=== PATIENT | male | born 1990 | race Two or more races ===

== ENCOUNTER 2018-01-14 18:25 | Emergency (ER) | payer SELFPAY ==
[2018-01-14] MEDS ORDERED: Ketorolac Tromethamine 30 MG/ML VIAL ONE (20:22)
== END 2018-01-14 20:27 | disposition home or self-care (01) ==
LOC: ERS 18:25
DX: K08.89 Other specified disorders of teeth and supporting structures (principal); F17.210 Nicotine dependence, cigarettes, uncomplicated
CPT/HCPCS: 96372; J1885

== ENCOUNTER 2018-10-21 11:44 | Emergency (ER) | payer SELFPAY | END 2018-10-21 13:09 | disposition home or self-care (01) | LOC: ERS 11:44 | DX: K08.89 Other specified disorders of teeth and supporting structures (principal); F17.210 Nicotine dependence, cigarettes, uncomplicated; Z71.6 Tobacco abuse counseling | CPT/HCPCS: 99282 ==

== ENCOUNTER 2019-07-28 18:03 | Emergency (ER) | payer SELFPAY ==
--- NOTE | 2019-07-28 18:37 | CT ---
CT OF THE ABDOMEN AND PELVIS WITHOUT IV CONTRAST INDICATION: Right-sided flank pain COMPARISON: None FINDINGS: This examination is limited for the evaluation of solid organs and vascular structures due to the lac k of intravenous contrast. ABDOMEN: Lung bases: Clear Liver: No focal lesion. Gallbladder: Normal appearing. Pancreas: Normal. Adrenal glands: Normal. Spleen: Normal. Kidneys and ureters: There are numerous tiny punctate nonobstructing stones involving both kidneys. T here is moderate to prominent dilatation of the right renal collecting system with a 4 mm stone seen at the pelvic inlet on image 67 of series 2 within the distal right ureter. Vasculature: There is a retroaortic left renal vein. Lymph nodes:No lymphadenopathy. Free fluid in abdomen:No free fluid is evident. PELVIS: Small and large bowel: There is decompression of portions of the colon and rectum limiting the evalua tion. Appendix:Not definitely seen Bladder: Decompressed Rectal and perirectal soft tissues:Decompressed Reproductive structures: Normal. Free fluid in pelvis: No free fluid is evident. Lymphadenopathy pelvis: No lymphadenopathy is evident. Osseous structures: No acute osseous abnormality. No destructive osteolytic or osteoblastic lesion i s identified. Soft tissues:Normal. IMPRESSION: 1. 4 mm distal right ureteral calculus with mild to moderate right hydronephrosis. 2. Bilateral nephrolithiasis
[2019-07-28] MEDS ORDERED: Ketorolac Tromethamine 30 MG/ML VIAL ONE (18:50)
[2019-07-28 18:53] LABS: #Basophils 0.1 thou/uL (0.0-0.2); #Monocytes 0.5 thou/uL (0.11-0.59); #Neutrophils 13.7 thou/uL (1.40-6.50); %Basophils 0.4 % (0.0-1.0); %Eosinophils 0.3 % (0.0-10.0); %Lymphocytes 6.4 % (21.0-51.0); %Neutrophils 89.9 % (42.0-75.0); Hemoglobin 16.7 g/dL (14.0-18.0); Mean Corpuscular HGB CONC 34.4 g/dL (32.0-36.0); Mean Corpuscular Hemoglobin 31.9 pg (27.0-31.0); Mean Corpuscular Volume 92.7 fL (78.0-98.0); Mean Platelet Volume 7.3 fL (7.4-10.4); Platelet Count 231 thou/uL (130-400); RBC Distribution Width 11.3 % (11.5-14.5); Red Blood Cell (RBC) Count 5.23 mill/uL (4.70-6.10); White Blood Cell (WBC) Count 15.3 thou/uL (4.8-10.8)
[2019-07-28 19:14] LABS: ALT (SGPT) 7 U/L (8-55); AST (SGOT) 10 U/L (5-34); Alkaline Phosphatase 73 U/L (40-110); Anion Gap 12 mmol/L (10-20); BUN (Urea Nitrogen) 10 mg/dL (8.9-20.6); Bilirubin, Total 0.9 mg/dL (0.2-1.2); Calc. Creatinine Clearance 0 mL/min (70-130); Calcium 9.3 mg/dL (7.8-10.44); Carbon Dioxide 27 mmol/L (22-29); Chloride 104 mmol/L (98-107); Estimated GFR-MDRD Greater than 90; Globulin 2.8 g/dL (2.4-3.5); Glucose 105 mg/dL (70-105); Lipase 9 U/L (8-78); Protein, Total 7.8 g/dL (6.0-8.3); Sodium 139 mmol/L (136-145)
[2019-07-28 19:30] LABS: Bilirubin Negative (Negative); Blood, Urine 3+ (Negative); Clarity Turbid (Clear); Glucose, Urine (Dipstick) Normal (Negative); Leukocyte 75 Leu/uL (Negative); Nitrite Negative (Negative); Protein, Urine (Dipstick) 300 mg/dL (Neg-Trace); RBC/HPF Greater than 50 HPF (0-3); Squamous Epithelial 0-3 HPF (0-3); WBC/HPF 21-50 HPF (0-3)
[2019-07-28 19:31] LABS: Bacteria/HPF 1+ HPF (None Seen)
[2019-07-28] MEDS ORDERED: Morphine 4 MG/ML VIAL ONE (20:06)
[2019-07-28] MEDS ORDERED: Ondansetron PF 4 MG/2 ML Vial ONE (20:15)
[2019-07-28] MEDS ORDERED: HYDROcodone/Acetaminophen 10/325 mg Tablet ONE (22:13)
== END 2019-07-28 22:12 | disposition home or self-care (01) ==
LOC: ERS 18:03
DX: N13.2 Hydronephrosis with renal and ureteral calculous obstruction (principal); F17.210 Nicotine dependence, cigarettes, uncomplicated
CPT/HCPCS: 36415; 74176; 80053; 81003; 81015; 83690; 85025; 87086; 96361; 96374; 96375; J1885; J2270; J2405

== ENCOUNTER 2019-08-27 07:17 | Emergency (ER) | payer SELFPAY ==
[2019-08-27 07:51] LABS: #Basophils 0.1 thou/uL (0.0-0.2); #Eosinphils 0.1 thou/uL (0.0-0.7); #Lymphocytes 3.1 thou/uL (1.20-3.40); #Monocytes 1.6 thou/uL (0.11-0.59); #Neutrophils 10.2 thou/uL (1.40-6.50); %Basophils 0.4 % (0.0-1.0); %Eosinophils 0.7 % (0.0-10.0); %Lymphocytes 20.5 % (21.0-51.0); %Monocytes 10.5 % (0.0-10.0); %Neutrophils 67.9 % (42.0-75.0); Hemoglobin 14.9 g/dL (14.0-18.0); Mean Corpuscular HGB CONC 34.5 g/dL (32.0-36.0); Mean Corpuscular Hemoglobin 31.5 pg (27.0-31.0); Mean Corpuscular Volume 91.3 fL (78.0-98.0); Mean Platelet Volume 7.2 fL (7.4-10.4); Platelet Count 214 thou/uL (130-400); RBC Distribution Width 10.9 % (11.5-14.5); Red Blood Cell (RBC) Count 4.75 mill/uL (4.70-6.10); White Blood Cell (WBC) Count 15.1 thou/uL (4.8-10.8)
[2019-08-27 08:05] LABS: ALT (SGPT) 23 U/L (8-55); AST (SGOT) 22 U/L (5-34); Albumin 4.6 g/dL (3.5-5.0); Alkaline Phosphatase 75 U/L (40-110); Anion Gap 11 mmol/L (10-20); BUN (Urea Nitrogen) 15 mg/dL (8.9-20.6); Bilirubin, Total 0.8 mg/dL (0.2-1.2); Calc. Creatinine Clearance 0 mL/min (70-130); Calcium 9.5 mg/dL (7.8-10.44); Carbon Dioxide 29 mmol/L (22-29); Chloride 102 mmol/L (98-107); Estimated GFR-MDRD 64; Globulin 2.8 g/dL (2.4-3.5); Glucose 95 mg/dL (70-105); Potassium 3.7 mmol/L (3.5-5.1); Protein, Total 7.4 g/dL (6.0-8.3); Sodium 138 mmol/L (136-145)
[2019-08-27] MEDS ORDERED: Morphine 4 MG/ML VIAL ONE (08:16)
[2019-08-27] MEDS ORDERED: Ondansetron PF 4 MG/2 ML Vial ONE (08:17)
[2019-08-27 08:20] LABS: Bilirubin Negative (Negative); Blood, Urine 2+ (Negative); Clarity Turbid (Clear); Glucose, Urine (Dipstick) Normal (Negative); Leukocyte 25 Leu/uL (Negative); Nitrite Negative (Negative); Protein, Urine (Dipstick) 70 mg/dL (Neg-Trace); RBC/HPF 21-50 HPF (0-3); Squamous Epithelial None Seen HPF (0-3)
[2019-08-27 08:21] LABS: Bacteria/HPF 1+ HPF (None Seen)
--- NOTE | 2019-08-27 09:41 | ULT ---
RENAL ULTRASOUND: INDICATION: Nephrolithiasis. COMPARISON: Correlation is made to recent T of 07/28/2019 which revealed right hydronephrosis with a right ureter al calculus. FINDINGS: There continues to be mild to moderate right hydronephrosis. The left kidney appears unremarkable. No calculi identified in either kidney by ultrasound. The urinary bladder was not imaged. IMPRESSION: Mild to moderate right hydronephrosis. POS: OFF
[2019-08-27] MEDS ORDERED: Nitrofurantoin Monohyd/M-Cryst 100 MG CAP PO SCH (09:45)
[2019-08-27] MEDS ORDERED: cefTRIAXone\\ROCEPHIN 1 GM VIAL ONE (09:48)
[2019-08-27] MEDS ORDERED: Ketorolac Tromethamine 30 MG/ML VIAL ONE (09:48)
== END 2019-08-27 11:33 | disposition home or self-care (01) ==
LOC: ERS 07:17
DX: E86.0 Dehydration (principal); R10.9 Unspecified abdominal pain; F17.210 Nicotine dependence, cigarettes, uncomplicated
CPT/HCPCS: 36415; 76770; 80053; 81003; 81015; 85025; 87086; 96361; 96365; 96375; J0696; J1885; J2270; J2405

== ENCOUNTER 2020-07-26 14:59 | Emergency (ER) | payer SELFPAY ==
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
[2020-07-26] MEDS ORDERED: HYDROcodone/Acetaminophen 10/325 mg Tablet ONE (17:07)
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
== END 2020-07-26 18:21 | disposition home or self-care (01) ==
LOC: ERS 14:59
DX: S60.212A Contusion of left wrist, initial encounter (principal); R51.9 Headache, unspecified; F17.210 Nicotine dependence, cigarettes, uncomplicated; V89.2XXA Person injured in unspecified motor-vehicle accident, traffic, initial encounter
CPT/HCPCS: 70450

== ENCOUNTER 2021-02-20 22:21 | Emergency (ER) | payer SELFPAY | END 2021-02-21 00:25 | disposition home or self-care (01) | LOC: ERS 22:21 | DX: M62.838 Other muscle spasm (principal); F17.210 Nicotine dependence, cigarettes, uncomplicated | CPT/HCPCS: 99283 ==

== ENCOUNTER 2021-03-15 20:50 | Emergency (ER) | payer SELFPAY | END 2021-03-15 22:15 | disposition home or self-care (01) | LOC: ERS 20:50 | DX: R05 Cough (principal); J02.9 Acute pharyngitis, unspecified; Z20.822 Contact with and (suspected) exposure to COVID-19; F17.210 Nicotine dependence, cigarettes, uncomplicated | CPT/HCPCS: 69200 ==

== ENCOUNTER 2021-04-20 19:04 | Emergency (ER) | payer OTHER, SELFPAY | END 2021-04-20 20:29 | disposition home or self-care (01) | LOC: ERS 19:04 | DX: S00.03XA Contusion of scalp, initial encounter (principal); W01.198A Fall on same level from slipping, tripping and stumbling with subsequent striking against other object, initial encounter | CPT/HCPCS: 99283 ==

== ENCOUNTER 2021-06-05 17:05 | Emergency (ER) | payer OTHER, SELFPAY | END 2021-06-05 21:31 | disposition home or self-care (01) | LOC: ERS 17:05 | DX: L03.317 Cellulitis of buttock (principal); L02.31 Cutaneous abscess of buttock; F17.200 Nicotine dependence, unspecified, uncomplicated | CPT/HCPCS: 99283 ==